=== PATIENT | male | born 1995 | race Hispanic/Latino ===

== ENCOUNTER 2016-12-02 16:00 | Emergency (ER) | payer OTHER ==
[2016-12-02 16:02] VITALS: BMI 22.1
[2016-12-02 16:06] VITALS: TEMP 98.6
[2016-12-02] MEDS ORDERED: Tmp-Smz 800 mg-160 mg DS Tab PO STA (16:28)
[2016-12-02] MEDS ORDERED: Oxycodone/Acetaminophen 5/325 mg Tab PO STA (16:28)
--- NOTE | 2016-12-02 16:46 | ED PDOC ---
Arrival/HPI - General Chief Complaint: Abnormal Skin Integrity Time Seen by Provider: 12/02/16 16:28 Historian: Patient - History of Present Illness Narrative History of Present Illness (Text): 12/02/16 16:41 20-year-old male presents today with a 3 day history of abscess to the right axilla. Patient states last night the wound started to drain. He denies fevers or chills. He is complaining of pain along the axilla of the right arm. Denies numbness weakness or tingling in the extremities. No medications have been taken for pain at home. No other complaints. Time/Duration: Other (3 days) Symptom Onset: Gradual Symptom Course: Worsening Quality: Aching, Throbbing Severity Level: 8 Past Medical History - Provider Review Nursing Documentation Reviewed: Yes - Travel History Have you recently traveled outside [place] w/in the past 3 mons?: No - Infectious Disease Hx of Infectious Diseases: None - Tetanus Immunization Tetanus Immunization: Unknown - Past Medical History Past Medical History: No Previous - Psychiatric Hx Depression: No Hx Emotional Abuse: No Hx Physical Abuse: No Hx Substance Use: Yes - Past Surgical History Past Surgical History: No Previous - Anesthesia Hx Anesthesia: No - Suicidal Assessment Feels Threatened In Home Enviroment: No Family/Social History - Physician Review Nursing Documentation Reviewed: Yes Family/Social History: Unknown Family HX Smoking Status: Light Smoker < 10 Cigarettes Daily Hx Alcohol Use: Yes Frequency of alcohol use: Daily Hx Substance Use: Yes Substance used: marijuana Allergies/Home Meds Allergies/Adverse Reactions: Allergies No Known Allergies Allergy (Verified 04/14/16 16:19) Review of Systems - Review of Systems Constitutional: absent: Fatigue, Fevers Respiratory: absent: SOB, Cough Cardiovascular: absent: Chest Pain, Palpitations Gastrointestinal: absent: Abdominal Pain, Nausea, Vomiting Genitourinary Male: absent: Dysuria, Frequency, Hematuria Musculoskeletal: absent: Arthralgias, Back Pain, Neck Pain Skin: Abscess Neurological: absent: Headache, Dizziness Physical Exam Vital Signs Reviewed: Yes Vital Signs Temp Pulse Resp BP Pulse Ox 12/02/16 16:06 98.6 F 109 H 18 147/86 98 Temperature: Afebrile Blood Pressure: Normal Pulse: Tachycardic Respiratory Rate: Normal Appearance: Positive for: Well-Appearing, Non-Toxic, Comfortable Pain Distress: None Mental Status: Positive for: Alert and Oriented X 3 - Systems Exam Head: Present: Atraumatic Neck: Present: Normal Range of Motion Respiratory/Chest: Present: Clear to Auscultation, Good Air Exchange. No: Respiratory Distress, Accessory Muscle Use Cardiovascular: Present: Regular Rate and Rhythm, Normal S1, S2. No: Murmurs Abdomen: No: Tenderness Upper Extremity: Present: Normal ROM, NORMAL PULSES, Tenderness (right axilla; + 3cm round draining abscess with surrounding erythema; ), Erythema, Neurovascularly Intact, Capillary Refill < 2s. No: Swelling, Temperature Abnormalties Neurological: Present: GCS=15 Skin: Present: Warm, Dry Psychiatric: Present: Alert, Oriented x 3 Medical Decision Making ED Course and Treatment: 12/02/16 16:48 Patient is nontoxic well-appearing in no distress. Vital signs are stable. Motrin, Percocet given for pain Bactrim DS p.o. I&D performed Patient was advised to use warm compresses warm soaks return to the emergency room in 2 days for [packing removal]. return immediately if symptoms worsen persist or if new symptoms develop Impression: Abscess, axilla Motrin one tablet every 6 hours as needed for pain Percocet one tablet every 6 hours as needed for moderate to severe pain: May cause drowsiness Bactrim DS: One tablet twice daily x7 days keflex; 1 capsule 4 times daily x 7 days. Warm compresses frequently Return in 2 days for packing removal and wound check Follow up with the Surgeon within the next 2 days. Return immediately if symptoms worsen persist or if new symptoms develop: High fevers, increasing pain, increasing redness, swelling or if any other concerning symptoms develop. - Medication Orders Current Medication Orders: Discontinued Medications Cephalexin Monohydrate (Keflex) 500 mg PO STAT STA PRN Reason: Protocol Stop: 12/02/16 16:29 Last Admin: 12/02/16 16:59 Dose: 500 mg Ketorolac Tromethamine (Toradol) 60 mg IM STAT STA Stop: 12/02/16 16:29 Last Admin: 12/02/16 17:00 Dose: 60 mg Lidocaine HCl (Lidocaine 1% (20ml)) Confirm Administered Dose 20 ml .ROUTE .STK- MED ONE Stop: 12/02/16 17:04 Oxycodone/Acetaminophen (Percocet 5/325 Mg Tab) 1 tab PO STAT STA Stop: 12/02/16 16:29 Last Admin: 12/02/16 16:59 Dose: 1 tab Trimethoprim/Sulfamethoxazole (Bactrim Ds Tab) 1 tab PO STAT STA PRN Reason: Protocol Stop: 12/02/16 16:29 Last Admin: 12/02/16 16:59 Dose: 1 tab Procedures - Incision and Drainage Site: right axilla Blade Size: 11 I & D Procedure: sterile drapes applied, sterile dressing applied, gauze wick placed Progress: right axilla; 3 cc lidocaine injected locally using 1% lidocaine. adequate anesthesia; small incision made over central fluctuance. moderate amount of purulent discharge released; wound explored for loculations. 1/4 gauge packing placed. dressing applied. pt tolerated procedure well. no complications. Disposition/Present on Arrival - Present on Arrival Any Indicators Present on Arrival: No History of DVT/PE: No History of Uncontrolled Diabetes: No Urinary Catheter: No History of Decub. Ulcer: No History Surgical Site Infection Following: None - Disposition Have Diagnosis and Disposition been Completed?: Yes Diagnosis: Abscess, axilla Disposition: HOME/ ROUTINE Disposition Time: 17:26 Patient Plan: Discharge Patient Problems: Current Active Problems Problem Status Onset Abscess, axilla Acute Condition: GOOD Discharge Instructions (ExitCare): Abscess (ED) Additional Instructions: Motrin one tablet every 6 hours as needed for pain Percocet one tablet every 6 hours as needed for moderate to severe pain: May cause drowsiness Bactrim DS: One tablet twice daily x7 days keflex; 1 capsule 4 times daily x 7 days. Warm compresses frequently Return in 2 days for packing removal and wound check Follow up with the Surgeon within the next 2 days. Return immediately if symptoms worsen persist or if new symptoms develop: High fevers, increasing pain, increasing redness, swelling or if any other concerning symptoms develop. Prescriptions: Cephalexin [Keflex] 500 mg PO QID #28 capsule Ibuprofen [Motrin] 600 mg PO Q6H PRN #20 tab PRN Reason: pain/fever reduction oxyCODONE/Acetaminophen [Percocet 5/325 mg Tab] 1 tab PO Q6H PRN #10 tab PRN Reason: moderate to severe pain Sulfamethoxazole/Trimethoprim [Bactrim DS 800 mg-160 mg] 1 tab PO BID #14 tab Referrals: Dread Musa MD [Medical Doctor] - Follow up with primary Victoriano Negrete MD [Staff Provider] - Follow up with primary Forms: WORK NOTE
[2016-12-02] MEDS ORDERED: Lidocaine 1% Inj (20ml) ONE (17:03)
[2016-12-02 17:45] VITALS: BP 145/82; PULSE 89; RESP 16; O2SAT 100
== END 2016-12-02 17:50 | disposition home or self-care (01) ==
LOC: ED 16:00
DX: L02.411 Cutaneous abscess of right axilla (principal)
CPT/HCPCS: 10060; 96372; 99283; J1885

== ENCOUNTER 2016-12-04 15:23 | Emergency (ER) | payer OTHER ==
[2016-12-04 15:34] VITALS: BMI 22.4
--- NOTE | 2016-12-04 15:36 | ED PDOC ---
Arrival/HPI - General Time Seen by Provider: 12/04/16 15:33 Historian: Patient - History of Present Illness Narrative History of Present Illness (Text): 12/04/16 15:33 20-year-old male presents today for wound check and packing removal from the right axilla. Patient states 2 days ago he was seen in the emergency room and had incision and drainage of an abscess to the right axilla. Patient denies fevers or chills. Patient still complaining of pain but states the pain is drastically improved. Denies dizziness or weakness. Patient states he has been taking medications as prescribed. No other complaints Symptom Onset: Gradual Symptom Course: Improving Quality: Throbbing Severity Level: 3 Past Medical History - Provider Review Nursing Documentation Reviewed: Yes - Travel History Have you recently traveled outside [place] w/in the past 3 mons?: No - Infectious Disease Hx of Infectious Diseases: None - Tetanus Immunization Tetanus Immunization: Unknown - Past Medical History Past Medical History: No Previous - Psychiatric Hx Depression: No Hx Emotional Abuse: No Hx Physical Abuse: No Hx Substance Use: Yes - Past Surgical History Past Surgical History: No Previous - Anesthesia Hx Anesthesia: No - Suicidal Assessment Feels Threatened In Home Enviroment: No Family/Social History - Physician Review Nursing Documentation Reviewed: Yes Family/Social History: Unknown Family HX Smoking Status: Light Smoker < 10 Cigarettes Daily Hx Alcohol Use: Yes Hx Substance Use: Yes Substance used: marijuana Allergies/Home Meds Allergies/Adverse Reactions: Allergies No Known Allergies Allergy (Verified 04/14/16 16:19) Review of Systems - Review of Systems Constitutional: absent: Fatigue, Fevers Respiratory: absent: SOB, Cough Cardiovascular: absent: Chest Pain, Palpitations Gastrointestinal: absent: Abdominal Pain, Nausea, Vomiting Musculoskeletal: Arthralgias Skin: Abscess (Right axilla) Neurological: absent: Headache, Dizziness Psychiatric: absent: Anxiety, Depression Physical Exam Vital Signs Reviewed: Yes Temperature: Afebrile Blood Pressure: Normal Pulse: Regular Respiratory Rate: Normal Appearance: Positive for: Well-Appearing, Non-Toxic, Comfortable Pain Distress: None Mental Status: Positive for: Alert and Oriented X 3 - Systems Exam Head: Present: Atraumatic Respiratory/Chest: Present: Clear to Auscultation Cardiovascular: Present: Regular Rate and Rhythm Breast/Axillary: Present: Erythema, Swelling, Tender to Palpation (Right axilla : There is a 2 cm round abscess with slight erythema with packing in place minimally tender.) Neurological: Present: GCS=15 Skin: Present: Warm, Dry, Normal Color Psychiatric: Present: Alert, Oriented x 3 Medical Decision Making ED Course and Treatment: 12/04/16 15:35 Patient is nontoxic well-appearing in no distress. Vital signs are stable. Packing removed from right axilla: Erythema improving pain improving. Bacitracin and dressing applied Patient was advised to use warm compresses warm soaks return to the emergency j[facility] immediately if symptoms worsen persist or if new symptoms develop Patient verbalizes understanding of discharge instructions and need for immediate followup. all aspects of this case were discussed the attending of record. Impression: Abscess, axilla, wound check Continue medications as prescribed Warm compresses and warm soaks frequently Follow-up with a surgeon within the next 2 days Return immediately if symptoms worsen persist or if new symptoms develop: High fevers, increasing pain, increasing redness, swelling or if any other concerning symptoms develop. Disposition/Present on Arrival - Present on Arrival Any Indicators Present on Arrival: No History of DVT/PE: No History of Uncontrolled Diabetes: No Urinary Catheter: No History Surgical Site Infection Following: None - Disposition Have Diagnosis and Disposition been Completed?: Yes Diagnosis: Wound check, abscess Disposition: HOME/ ROUTINE Disposition Time: 15:36 Patient Plan: Discharge Condition: GOOD Discharge Instructions (ExitCare): Abscess (ED) Additional Instructions: Continue medications as prescribed Warm compresses and warm soaks frequently Follow-up with a surgeon within the next 2 days Return immediately if symptoms worsen persist or if new symptoms develop: High fevers, increasing pain, increasing redness, swelling or if any other concerning symptoms develop. Referrals: Houston Tafoya MD [Staff Provider] - Follow up with primary [facility] [Outside] - Follow up with primary Forms: WORK NOTE
[2016-12-04 15:38] VITALS: BP 118/65; PULSE 78; RESP 18; TEMP 98; O2SAT 98
== END 2016-12-04 15:54 | disposition home or self-care (01) ==
LOC: ED 15:23
DX: Z51.89 Encounter for other specified aftercare (principal); L02.411 Cutaneous abscess of right axilla

== ENCOUNTER 2017-10-26 01:02 | Emergency (ER) | payer SELFPAY ==
[2017-10-26 01:02] VITALS: BMI 22.4
[2017-10-26 01:26] VITALS: TEMP 98.1
--- NOTE | 2017-10-26 01:57 | ED PDOC ---
Arrival/HPI - General Chief Complaint: Alcohol Ingestion Time Seen by Provider: 10/26/17 01:57 - History of Present Illness Narrative History of Present Illness (Text): 10/26/17 01:57 21 year old male, with no significant past medical history, presents to the emergency department by EMS/[facility] for alcohol intoxication. Patient was found underneath a car. Patient admits to drinking tonight and denies any current complaints. Patient denies any fever, chills, chest pain, shortness of breath, abdominal pain, nausea, vomiting, diarrhea, urinary symptoms, back pain, neck pain, headache, dizziness, suicidal/homicidal Ideation, or any other complaints. Past Medical History - Infectious Disease Hx of Infectious Diseases: None - Tetanus Immunization Tetanus Immunization: Unknown - Past Medical History Past Medical History: No Previous - Psychiatric Hx Depression: No Hx Emotional Abuse: No Hx Physical Abuse: No Hx Substance Use: Yes - Past Surgical History Past Surgical History: No Previous - Anesthesia Hx Anesthesia: No - Suicidal Assessment Feels Threatened In Home Enviroment: No Family/Social History Family/Social History: No Known Family HX Smoking Status: Light Smoker < 10 Cigarettes Daily Hx Alcohol Use: Yes Hx Substance Use: Yes Substance used: marijuana Allergies/Home Meds Allergies/Adverse Reactions: Allergies No Known Allergies Allergy (Verified 10/26/17 01:12) Home Medications: Home Meds Medication Instructions Recorded Confirmed No Known Home Med 10/26/17 10/26/17 Physical Exam - Physical Exam Narrative Physical Exam (Text): Constitutional: No acute distress. Head: Normocephalic. Atraumatic. Eyes: PERRL. ENT: Moist mucous membranes. Neck: Supple. Cardiovascular: Regular rate. Chest: No tenderness. Respiratory: Clear to auscultation bilaterally. GI: Soft. Nontender. Nondistended. Back: No CVA tenderness. Musculoskeletal: No tenderness or swelling of extremities. Skin: No rash. Abrasion to the right knee and right arm. No laceration. Neurologic: Alert, no focal deficit. Vital Signs Temp Pulse Resp BP Pulse Ox 10/26/17 02:21 88 16 142/68 100 10/26/17 01:26 98.1 F 108 H 18 151/98 H 98 Medical Decision Making ED Course and Treatment: 10/26/17 01:57 Impression: 21 year old male presents for alcohol intoxication. Plan: -- Reassess and disposition Progress Notes: 10/26/17 02:10 Patient's girlfriend came to the emergency department to take patient home. Patient declined tetanus shot, states he had one very recently. - Scribe Statement The provider has reviewed the documentation as recorded by the Danette Campbell Provider Scribe Attestation: All medical record entries made by the Scribe were at my direction and personally dictated by me. I have reviewed the chart and agree that the record accurately reflects my personal performance of the history, physical exam, medical decision making, and the department course for this patient. I have also personally directed, reviewed, and agree with the discharge instructions and disposition. Disposition/Present on Arrival - Present on Arrival Any Indicators Present on Arrival: No History of DVT/PE: No History of Uncontrolled Diabetes: No Urinary Catheter: No History of Decub. Ulcer: No History Surgical Site Infection Following: None - Disposition Have Diagnosis and Disposition been Completed?: Yes Diagnosis: Alcohol intoxication Disposition: HOME/ ROUTINE Disposition Time: 02:21 Patient Plan: Discharge Condition: STABLE Discharge Instructions (ExitCare): Alcohol Abuse and Alcoholism (DC) Forms: [employer] (Irish)
[2017-10-26 03:13] VITALS: BP 142/68; PULSE 88; RESP 16; O2SAT 100
== END 2017-10-26 02:21 | disposition home or self-care (01) ==
LOC: ED 01:02
DX: F10.129 Alcohol abuse with intoxication, unspecified (principal)

== ENCOUNTER 2018-03-27 12:47 | Emergency (ER) | payer OTHER ==
[2018-03-27 12:50] VITALS: BMI 22.7
[2018-03-27 12:52] VITALS: TEMP 98.3
[2018-03-27] MEDS ORDERED: Sodium Chloride 0.9% 500 ML IV STA (12:57)
--- NOTE | 2018-03-27 13:11 | ED PDOC ---
Arrival/HPI - General Chief Complaint: Substance Abuse Time Seen by Provider: 03/27/18 12:47 Historian: Patient - History of Present Illness Narrative History of Present Illness (Text): 03/27/18 13:12 A 22 year old male, whose past medical history includes substance abuse, brought into the emergency department for suspected substance abuse. Patient reports he is experiencing palpitations. He admits to smoking "weed and taking PCP" earlier this morning. Patient denies any SI/HI, or any other complaints at this time. No PMD Past Medical History - Provider Review Nursing Documentation Reviewed: Yes - Infectious Disease Hx of Infectious Diseases: None - Tetanus Immunization Tetanus Immunization: Unknown - Past Medical History Past Medical History: No Previous - Psychiatric Hx Depression: No Hx Emotional Abuse: No Hx Physical Abuse: No Hx Substance Use: Yes (PCP) - Past Surgical History Past Surgical History: No Previous - Anesthesia Hx Anesthesia: No - Suicidal Assessment Feels Threatened In Home Enviroment: No Family/Social History - Physician Review Nursing Documentation Reviewed: Yes Family/Social History: No Known Family HX Smoking Status: Light Smoker < 10 Cigarettes Daily Hx Alcohol Use: Yes Frequency of alcohol use: Few days per week Hx Substance Use: Yes (PCP) Substance used: marijuana Allergies/Home Meds Allergies/Adverse Reactions: Allergies No Known Allergies Allergy (Verified 03/27/18 12:53) Home Medications: Home Meds Medication Instructions Recorded Confirmed RX: No Known Home Med 10/26/17 03/27/18 Review of Systems - Physician Review All systems were reviewed & negative as marked: Yes - Review of Systems Constitutional: absent: Fevers, Night Sweats Cardiovascular: Palpitations Gastrointestinal: absent: Abdominal Pain, Diarrhea, Nausea, Vomiting Neurological: absent: Headache, Dizziness Psychiatric: absent: Suicidal Ideation (and no homicidal ideation) Physical Exam Vital Signs Reviewed: Yes Vital Signs Temp Pulse Resp BP Pulse Ox 03/27/18 12:50 98.3 F 135 H 20 171/99 H 100 Temperature: Afebrile Blood Pressure: Normal Pulse: Regular Respiratory Rate: Normal Appearance: Positive for: Other (anxious-appearing) Pain Distress: None Mental Status: Positive for: Alert and Oriented X 3 - Systems Exam Head: Present: Atraumatic, Normocephalic Pupils: Present: PERRL Extroacular Muscles: Present: EOMI Conjunctiva: Present: Normal Mouth: Present: Moist Mucous Membranes Neck: Present: Normal Range of Motion Respiratory/Chest: Present: Clear to Auscultation, Good Air Exchange. No: Respiratory Distress, Accessory Muscle Use Cardiovascular: Present: Regular Rate and Rhythm, Normal S1, S2. No: Murmurs Abdomen: No: Tenderness, Distention, Peritoneal Signs Back: Present: Normal Inspection Upper Extremity: Present: Normal Inspection. No: Cyanosis, Edema Lower Extremity: Present: Normal Inspection. No: Edema Neurological: Present: GCS=15, CN II-XII Intact, Speech Normal Skin: Present: Warm, Dry, Normal Color. No: Rashes Psychiatric: Present: Alert, Oriented x 3, Anxious Medical Decision Making ED Course and Treatment: 03/27/18 13:15 Impression: 22 year old male brought in for substance abuse. Physical exam shows patient appears anxious. Plan: -- EKG -- Labs -- IV Fluids -- Urinalysis -- Reassess and disposition Prior Visits: Notes and results from previous visits were reviewed. Patient was last seen here in the emergency department on 10/26/2017 for alcohol intoxication. Patient was discharged home. Progress Notes: EKG: Ordered, reviewed and independently interpreted the EKG. Rate:120 BPM Rhythm: Sinus tachycardia. Interpretation: No ST segment elevations or depressions, no T-wave inversions, normal intervals. 03/27/18 13:45 pt upona rrival tachycardic, admits to pcp abuse. labs pending later father arrives, pt now calm cooperative hr improved 105. declines lab work. father and pt agree to further obs. 03/27/18 14:04 pt reassesed. in nad. hr decreased to 90s, calm cooperative denies complaints. no si hi . 03/27/18 14:18 pt reassesed in nad. calmp cooperative taking po. 03/27/18 14:44 pt awake alert ambulatory in nad. - Medication Orders Current Medication Orders: Sodium Chloride (Sodium Chloride 0.9%) 500 mls @ 999 mls/hr IV .Q31M STA Stop: 03/27/18 13:27 - Scribe Statement The provider has reviewed the documentation as recorded by the Danette Perkins Provider Scribe Attestation: All medical record entries made by the Scribe were at my direction and personally dictated by me. I have reviewed the chart and agree that the record accurately reflects my personal performance of the history, physical exam, medical decision making, and the department course for this patient. I have also personally directed, reviewed, and agree with the discharge instructions and disposition. Disposition/Present on Arrival - Present on Arrival Any Indicators Present on Arrival: No History of DVT/PE: No History of Uncontrolled Diabetes: No Urinary Catheter: No History of Decub. Ulcer: No History Surgical Site Infection Following: None - Disposition Have Diagnosis and Disposition been Completed?: Yes Diagnosis: Substance abuse Disposition: HOME/ ROUTINE Disposition Time: 01:00 Condition: STABLE Discharge Instructions (ExitCare): Drug Abuse and Drug Addiction (DC) Additional Instructions: please return to er with worsening symptoms or concerns. Referrals: [facility] [Outside] - Follow up with primary [facility] [Outside] - Follow up with primary Forms: [employer] [facility] (Albanian)
[2018-03-27 13:49] VITALS: BP 148/92; RESP 17
[2018-03-27 13:57] VITALS: PULSE 99; O2SAT 100
--- NOTE | 2018-03-27 22:47 | CARD ---
APPROVED REPORT Date of service: 03/27/2018 EKG Measurement Heart [id number] <Conclusion> Sinus tachycardia Otherwise normal ECG
== END 2018-03-27 14:45 | disposition home or self-care (01) ==
LOC: ED 12:47
DX: F19.10 Other psychoactive substance abuse, uncomplicated (principal); F17.210 Nicotine dependence, cigarettes, uncomplicated